=== PATIENT | male | born 1955 | race Two or more races ===

== ENCOUNTER 2020-07-17 05:29 | Day surgery (SDC) | payer OTHER ==
[~2020-07-17 05:29] MED LIST: CARAFATE1 GM PO; DITROPAN XL10 MG PO; PEPCID40 MG PO; TAMS0.4C PO
== END 2020-07-17 13:00 | disposition home or self-care (01) ==
LOC: CIR.AMB 05:29
PROVIDERS: ATTEND Orthopaedic Surgery Sports Medicine
DX: M75.121 Complete rotator cuff tear or rupture of right shoulder, not specified as traumatic (principal); M75.101 Unspecified rotator cuff tear or rupture of right shoulder, not specified as traumatic; M24.011 Loose body in right shoulder; M75.21 Bicipital tendinitis, right shoulder; M75.41 Impingement syndrome of right shoulder